=== PATIENT | female | born 1950 | race Caucasian/White ===

== ENCOUNTER 2017-10-17 01:51 | Observation (INO) ==
--- NOTE | 2017-10-17 03:54 | ED ---
HPI General Chief complaint: Recheck/Abnormal Lab/Rx Stated complaint: medical/doctor sent Time Seen by Provider: 10/17/17 03:36 Source: patient History of Present Illness HPI narrative: The patient is a 67 year old female who presents to the [facility] emergency department with a history of fatigue, fevers with a T-max of 104, and night sweats that began on September 24. The patient reports that she went to the emergency department and was diagnosed with an E. coli growing urinary tract infection. Her only symptoms from a urinary tract infection standpoint were more frequent urination at night. She denies having any dysuria or urinary urgency. She reports that she was started on Macrobid. She reports that she continue to have the symptoms and went back to the emergency department on October 03. She was then placed on Keflex 4 times a day for 10 days. She reports that 2 days into taking the Keflex her symptoms had resolved, however she called back to [place] where her turner off is currently located and explained the symptoms and was told that she would need a 2D echo. The patient is followed for her cardiac care by Dr. Leonard. Her primary care physician is Dr. Otero. The patient was visiting [place] when this transpired. The patient reports that she did on August 04 undergo a crown replacement in the left mandible and unfortunately forgot to take her premedication with 4 amoxicillin tablets. She is on prophylaxis related to an aortic valve replacement with a bovine valve in 2014. She also had a pacemaker placed in 2009. The patient reports a history of atrial fibrillation and is chronically anticoagulated on Coumadin. The patient reports that she had an outpatient 2D echo done on October 12, last . It was suspicious for endocarditis with valvular abnormalities, therefore she was immediately taken to the emergency department. The patient was admitted through Monday and had been on Rocephin and vancomycin, however the vancomycin was discontinued and the Rocephin continued. The patient reports that she was discharged from the hospital Monday morning after receiving a 6 AM dose of Rocephin 2 g IV. The patient then flew back to [place]. She was told by her primary care physician and turner off to come to the hospital for admission. She reports that her blood cultures were negative in the hospital. On review of systems otherwise, the patient reports briefly having some nausea, however no vomiting since the onset of symptoms. She denies having any recent fevers, cough or congestion, neck pain, chest pain, shortness of breath, abdominal pain, diarrhea, or neurologic symptoms. Related Data Home Medications Medication Instructions Recorded Confirmed levothyroxine 50 mcg PO DAILY 10/17/17 10/17/17 warfarin 4 mg PO Q OTHER DAY 10/17/17 10/17/17 warfarin 5 mg PO Q OTHER DAY 10/17/17 10/17/17 Allergies Allergy/AdvReac Type Severity Reaction Status Date / Time No Known Allergies Allergy Verified 10/17/17 02:22 Review of Systems ROS Unobtainable All other systems reviewed negative except as stated in HPI [facility] Medical History Medical History Aortic stenosis (Acute) Guillain Chery syndrome (Acute) Hypothyroidism (Acute) Pacemaker (Acute) Atrial fibrillation (Acute) Surgical History Surgical History Aortic valve replaced (Acute) H/O breast biopsy (Acute) Social History Social History Substance History: No History of Abuse Smoking Status: Never smoker How Often Do You Have a Drink Containing Alcohol: Never Recent Travel in [facility] within the Last 8 Weeks: No Recent Out of Country Travel within the Last 8 Weeks: No Immunization History Tetanus Immunization: >5 Years Hx Influenza Vaccine This Season: No Exam Const General: cooperative, no acute distress, well developed and well hydrated Nutritional Appearance: well nourished Orientation: alert, awake and oriented x3 HENMT Head: normocephalic and atraumatic Nose: no nasal discharge and no epistaxis Mouth: moist mucous membranes Eyes Sclera: normal sclerae Pupils: PERRL Neck Neck: trachea midline and no JVD Resp Effort & Inspection: no use of accessory muscles Auscultation: clear to auscultation bilaterally Cardio Rate: regular rate Rhythm: regular rhythm Heart Sounds: click, no murmurs and no rubs GI Inspection: non-distended Palpation: soft, no hepatosplenomegaly and nontender Back/Spine/Pelvis Back: no CVA tenderness Skin General: dry skin (warm) Neuro General: alert and awake Cranial Nerves: other Speech: speech normal Motor: no movement abnormalities noted Extrem General: normal to inspection, no clubbing, no cyanosis, no edema and other (No calf tenderness on palpation. Negative Homans sign. No palpable cords.) Psych Mood: congruent mood Affect: normal affect Judgment: judgment good Course Consultations Consultation #1: The patient's case including history, pertinent physical examination findings, and laboratory studies were discussed with Dr. Card. It was agreed that the patient would be admitted to the hospitalist service. Initial Documented Vital Signs Temperature 97.9 F 10/17/17 02:17 Pulse Rate 51 L 10/17/17 02:17 Respiratory Rate 20 10/17/17 02:17 Blood Pressure 126/60 10/17/17 02:17 Pulse Oximetry 99 10/17/17 02:17 Last Documented Vital Signs Temperature 97.9 F 10/17/17 02:17 Pulse Rate 69 10/17/17 03:38 Respiratory Rate 15 10/17/17 03:38 Blood Pressure 136/63 10/17/17 03:38 Pulse Oximetry 98 10/17/17 04:21 Medical Decision Making MDM Narrative Medical decision making narrative: During the course of the patient's emergency department visit, the patient's history, examination, and differential diagnosis were reviewed with the patient. The patient was placed on a monitor tech with oximetry and frequent blood pressure monitoring. The patient had IV access obtained and blood work sent for analysis. Blood cultures 2 were drawn, lactic acid was sent for analysis. The patient was initially provided normal saline at maintenance rate, Rocephin 2 g IV as she reports that she is due for another dose. The patient was sent in for continuation of IV antibiotic and further evaluation by her turner off for completion of her treatment of endocarditis. The patient reports a history of recently being diagnosed with endocarditis while visiting in [place] and traveled back for admission locally yesterday. She last received IV antibiotic yesterday. The patient has a copy of her imaging and evaluation in the hospital at [place] with her. The patient's laboratory studies are remarkable for a white count of 5, platelets 287 with a monocytosis at 10, hemoglobin 11.1, PT 23.3, INR 2.3, PTT 32.7. Chemistries remarkable for a troponin I of less than 0.02, GFR of 82, BUN 20, albumin 3.3, urinalysis shows few mucus trace leukocyte esterase. The patient's results were discussed with the patient, including the plan of care. I explained that further testing and/ or monitoring is indicated based on the patient's history, examination, and/ or laboratory findings. Therefore, I recommended admission for additional evaluation. The patient expressed understanding and was agreeable with this plan. The patient was admitted to the hospital in stable condition and sent to a bed under the care of the [facility] service. Differential Diagnosis Differential Diagnosis: Endocarditis, versus bacteremia, versus pyelonephritis, versus urinary tract infection Lab Data Result diagrams: 10/17/17 04:13 10/17/17 04:13 Lab Results 10/17/17 10/17/17 10/17/17 Range/Units 04:13 04:13 04:13 WBC 5.0 (4.0-11.0) th/mm3 RBC 3.68 L (4.00-5.30) mil/mm3 Hgb 11.1 L (11.6-15.3) gm/dL Hct 33.3 L (35.0-46.0) % MCV 90.5 (80.0-100.0) fL MCH 30.3 (27.0-34.0) pg MCHC 33.5 (32.0-36.0) % RDW 13.6 (11.6-17.2) % Plt Count 287 (150-450) th/mm3 MPV 7.9 (7.0-11.0) fL Neut % (Auto) 65.0 (16.0-70.0) % Lymph % (Auto) 23.6 (9.0-44.0) % [place] % (Auto) 10.0 H (0.0-8.0) % Eos % (Auto) 0.9 (0.0-4.0) % Baso % (Auto) 0.5 (0.0-2.0) % Neut # (Auto) 3.2 (1.8-7.7) th/mm3 Lymph # (Auto) 1.2 (1.0-4.8) th/mm3 [place] # (Auto) 0.5 (0.0-0.9) th/mm3 Eos # (Auto) 0.0 (0.0-0.4) th/mm3 Baso # (Auto) 0.0 (0.0-0.2) th/mm3 WBC Differential . Differential Comment Auto diff final PT 23.3 H (9.8-11.6) sec INR 2.3 Ratio APTT 32.7 H (24.3-30.1) sec Sodium 140 (136-145) meq/L Potassium 3.8 (3.5-5.1) meq/L Chloride 104 (98-107) meq/L Carbon Dioxide 28.8 (21.0-32.0) meq/L Anion Gap 7 (5-15) meq/L BUN 20 H (7-18) mg/dL Creatinine 0.71 (0.50-1.00) mg/dL Estimated GFR 82 L (>89) mL/min Random Glucose 97 (74-106) mg/dL Lactic Acid (0.4-2.0) mmol/L Calcium 8.6 (8.5-10.1) mg/dL Magnesium 2.1 (1.5-2.5) mg/dL Total Bilirubin 0.3 (0.2-1.0) mg/dL AST 35 (15-37) U/L ALT 44 (10-53) U/L Alkaline Phosphatase 62 (45-117) U/L Total Creatine Kinase 68 (26-192) U/L Troponin I Less than 0.02 L (0.02-0.05) ng/mL Total Protein 8.0 (6.4-8.2) g/dL Albumin 3.3 L (3.4-5.0) g/dL Lipase 164 (73-393) U/L Urine Color (Yellw/Straw) Urine Clarity (Clear) Urine pH (5.0-8.5) Ur Specific [place] (1.002-1.035) Urine Protein (Neg-Trace) mg/dL Urine Glucose (UA) (Negative) mg/dL Urine Ketones (Negative) mg/dL Urine Occult Blood (Negative) Urine Nitrate (Negative) Urine Bilirubin (Negative) Urine Urobilinogen (Less than 2) mg/dL Ur Leukocyte Esterase (Negative) Urine RBC (0-3) /hpf Urine WBC (0-5) /hpf Ur Squamous Epith Cells (0-5) /hpf Hyaline Casts (0-3) /lpf Urine Mucus (Occasional) /lpf Micro UA Comment Urine Culture Comments 10/17/17 10/17/17 Range/Units 04:13 05:13 WBC (4.0-11.0) th/mm3 RBC (4.00-5.30) mil/mm3 Hgb (11.6-15.3) gm/dL Hct (35.0-46.0) % MCV (80.0-100.0) fL MCH (27.0-34.0) pg MCHC (32.0-36.0) % RDW (11.6-17.2) % Plt Count (150-450) th/mm3 MPV (7.0-11.0) fL Neut % (Auto) (16.0-70.0) % Lymph % (Auto) (9.0-44.0) % [place] % (Auto) (0.0-8.0) % Eos % (Auto) (0.0-4.0) % Baso % (Auto) (0.0-2.0) % Neut # (Auto) (1.8-7.7) th/mm3 Lymph # (Auto) (1.0-4.8) th/mm3 [place] # (Auto) (0.0-0.9) th/mm3 Eos # (Auto) (0.0-0.4) th/mm3 Baso # (Auto) (0.0-0.2) th/mm3 WBC Differential Differential Comment PT (9.8-11.6) sec INR Ratio APTT (24.3-30.1) sec Sodium (136-145) meq/L Potassium (3.5-5.1) meq/L Chloride (98-107) meq/L Carbon Dioxide (21.0-32.0) meq/L Anion Gap (5-15) meq/L BUN (7-18) mg/dL Creatinine (0.50-1.00) mg/dL Estimated GFR (>89) mL/min Random Glucose (74-106) mg/dL Lactic Acid 1.5 (0.4-2.0) mmol/L Calcium (8.5-10.1) mg/dL Magnesium (1.5-2.5) mg/dL Total Bilirubin (0.2-1.0) mg/dL AST (15-37) U/L ALT (10-53) U/L Alkaline Phosphatase (45-117) U/L Total Creatine Kinase (26-192) U/L Troponin I (0.02-0.05) ng/mL Total Protein (6.4-8.2) g/dL Albumin (3.4-5.0) g/dL Lipase (73-393) U/L Urine Color Yellow (Yellw/Straw) Urine Clarity Clear (Clear) Urine pH 6.0 (5.0-8.5) Ur Specific [place] 1.017 (1.002-1.035) Urine Protein Negative (Neg-Trace) mg/dL Urine Glucose (UA) Negative (Negative) mg/dL Urine Ketones Negative (Negative) mg/dL Urine Occult Blood Negative (Negative) Urine Nitrate Negative (Negative) Urine Bilirubin Negative (Negative) Urine Urobilinogen Less than 2 (Less than 2) mg/dL Ur Leukocyte Esterase Trace H (Negative) Urine RBC 2 (0-3) /hpf Urine WBC 10 H (0-5) /hpf Ur Squamous Epith Cells <1 (0-5) /hpf Hyaline Casts 1 (0-3) /lpf Urine Mucus Few H (Occasional) /lpf Micro UA Comment Culture indicated Urine Culture Comments Culture indicated Imaging Data Radiologist's impression: Chest X-Ray 10/17/17 04:10 CONCLUSION: No active disease. Postsurgical changes as above. ECG Data Attestation: I personally reviewed and interpreted this ECG as follows: Interpretation: The patient had an EKG done on arrival that shows an electronic atrial paced rhythm, heart rate is 71, QRS duration 90 a 473 ms representing a prolonged QT interval, no acute ST segment elevation is noted. T waves are inverted in V1. Discharge Plan Discharge Disposition Patient Disposition: 30 Still Patient Physicians Team ED Provider: Bertha Haynes Primary Care Provider: UNKNOWN, Rxs /Orders / Referrals /Forms Prescriptions: No Action levothyroxine 50 mcg Tablet 50 mcg PO DAILY RF: 0 warfarin 4 mg Tablet 4 mg PO Q OTHER DAY RF: 0 warfarin 5 mg Tablet 5 mg PO Q OTHER DAY RF: 0 Status ED Status: With Doctor
--- NOTE | 2017-10-17 04:34 | XR ---
EXAM DATE: 10/17/2017 4:26 AM EDT AGE/SEX: 67 years / Female INDICATIONS: . Fever. Primary care physician sent. CLINICAL DATA: This is the patient's initial encounter. Patient reports that signs and symptoms have been present for 1 day and indicates a pain score of 0/10. MEDICAL/SURGICAL HISTORY: None. Pacemaker. COMPARISON: No prior exams available for comparison. FINDINGS: Pacer leads overlie right atrium and right ventricle. Previous sternotomy and aortic valve replacemen t with atrial clip. No focal airspace disease or effusion. No pneumothorax. CONCLUSION: No active disease. Postsurgical changes as above. Electronically signed by: Isak Shen MD 10/17/2017 4:33 AM EDT
[2017-10-17 04:36] LABS: Baso % (Auto) 0.5 % (0.0-2.0); Eos % (Auto) 0.9 % (0.0-4.0); Hematocrit 33.3 % (35.0-46.0); Hemoglobin 11.1 gm/dL (11.6-15.3); Lymph # (Auto) 1.2 th/mm3 (1.0-4.8); Lymph % (Auto) 23.6 % (9.0-44.0); Mean Corpuscular HGB Conc 33.5 % (32.0-36.0); Mean Corpuscular Hemoglobin 30.3 pg (27.0-34.0); Mean Corpuscular Volume 90.5 fL (80.0-100.0); Mean Platelet Volume 7.9 fL (7.0-11.0); Mono # (Auto) 0.5 th/mm3 (0.0-0.9); Neut # (Auto) 3.2 th/mm3 (1.8-7.7); Platelet Count 287 th/mm3 (150-450); Red Blood Count 3.68 mil/mm3 (4.00-5.30); Red Cell Distribution Width 13.6 % (11.6-17.2)
[2017-10-17 04:38] LABS: Activated Partial Thrombo Time 32.7 sec (24.3-30.1); INR 2.3 Ratio; Prothrombin Time 23.3 sec (9.8-11.6)
[2017-10-17 04:48] LABS: Alanine Aminotransferase 44 U/L (10-53); Albumin 3.3 g/dL (3.4-5.0); Anion Gap 7 meq/L (5-15); Aspartate Aminotransferase 35 U/L (15-37); Blood Urea Nitrogen 20 mg/dL (7-18); Calcium 8.6 mg/dL (8.5-10.1); Carbon Dioxide 28.8 meq/L (21.0-32.0); Chloride 104 meq/L (98-107); Glomerular Filtration Rate 82 mL/min (>89); Glucose,Random 97 mg/dL (74-106); Lipase 164 U/L (73-393); Magnesium 2.1 mg/dL (1.5-2.5); Potassium 3.8 meq/L (3.5-5.1); Sodium 140 meq/L (136-145)
[2017-10-17 04:53] LABS: Alkaline Phosphatase 62 U/L (45-117); Creatine Kinase 68 U/L (26-192)
[2017-10-17 05:37] LABS: Bilirubin,Urine Negative (Negative); Clarity,Urine Clear (Clear); Color,Urine Yellow (Yellw/Straw); Glucose,Urine (UA) Negative (Negative); Hyaline Casts,Urine 1 /lpf (0-3); Leukocyte Esterase,Urine Trace (Negative); Mucus,Urine Few /lpf (Occasional); Nitrite,Urine Negative (Negative); Specific Gravity,Urine 1.017 (1.002-1.035); Squamous Epithelial Cell,Urine <1 /hpf (0-5)
--- NOTE | 2017-10-17 09:32 | P.HPIM ---
History of Present Illness Primary Care Physician: UNKNOWN Chief Complaint: fever History of Present Illness: patient is a 67 y/o female with history of atrial fibrillation- s/p aortic valve replacement and pacemaker insertion, presented to ER with possible endocarditis. she says that she started to have some fever and chills about three weeks ago. she was seen in ER and initially started on Macrobid and later on keflex for possible UTI. she says that since the fever didn't resolve she had an echo done. the report of echo at that hospital showed possible vegetation vs fibrous strand on one of the leads in RA. she received Vanco and Rocephin at the time but she says that since she lives in [place], she decided to leave but she was told to come to ER right away after she gets back home. she says that she didn't habd any further fever or chills since then. she denies any chest pain,sob, abdominal pain. Review of Systems All other systems reviewed negative except as stated in HPI [facility] - History History Provided By: Patient - Medical History Medical History: Medical History (Last Reviewed 10/17/17 @ 10:51 by Irlanda Bermudez MD) Aortic stenosis Guillain Chery syndrome Hypothyroidism Atrial fibrillation - Surgical History Surgical History: Surgical History (Last Updated 10/17/17 @ 10:52 by Irlanda Bermudez MD) H/O aortic valve replacement S/P placement of cardiac pacemaker H/O breast biopsy - Tobacco History Smoking Status: Never smoker - Alcohol History How Often Do You Have a Drink Containing Alcohol: Never - Substance Use History Substance History: No History of Abuse - Travel History Recent Travel in the [place] Within the Last 8 Weeks: No Recent Travel Out of the Country Within the Last 8 Weeks: No - Immunization History Tetanus Immunization: >5 Years Hx Influenza Vaccine This Season: No Medications and Allergies Active Medications: Active Medications Ceftriaxone Sodium 2,000 mg/ (Sodium Chloride) 100 mls @ 200 mls/hr IV.SIG Q12H [facility] Pharmacy Profile Note (Vancomycin Consult Pharmacy) 0 mls @ 0 mls/hr OTHER UNSCH [facility] Levothyroxine Sodium (Synthroid) 50 mcg PO DAILY [facility] Warfarin Sodium (Coumadin) 4 mg PO Q OTHER DAY [facility] Warfarin Sodium (Coumadin) 5 mg PO Q OTHER DAY [facility] Allergies Allergy/AdvReac Type Severity Reaction Status Date / Time No Known Allergies Allergy Verified 10/17/17 02:22 Home Medications Medication Instructions Recorded Confirmed Type levothyroxine 50 mcg PO DAILY 10/17/17 10/17/17 History warfarin 4 mg PO Q OTHER DAY 10/17/17 10/17/17 History warfarin 5 mg PO Q OTHER DAY 10/17/17 10/17/17 History Exam Vital signs: Vital Signs 10/17/17 02:17 10/17/17 03:38 10/17/17 04:21 Temperature 97.9 F Pulse Rate 51 L 69 Respiratory Rate 20 15 Blood Pressure 126/60 136/63 Pulse Oximetry 99 99 98 10/17/17 06:21 10/17/17 07:28 Temperature Pulse Rate 69 69 Respiratory Rate 17 18 Blood Pressure 119/64 119/64 Pulse Oximetry 99 Intake & Output 10/16/17 10/17/17 10/17/17 18:59 06:59 18:59 Intake Total 100 / 100 Balance 100 / 100 Weight 58.967 kg Intake: IV 100 / 100 Rocephin Inj 2,000 MG In NS Inj 100 / 100 100 ML @ 200 mls/hr IV.SIG ONCE ONE Rx#:[id number] - Constitutional no acute distress - Routine HEENT Exam Head: Present: normocephalic, atraumatic - Routine Neck Exam Present: supple, full ROM - Routine Respiratory Exam Present: CTA bilaterally - Routine Cardiovascular Exam Present: RRR - Routine Abdominal Exam Present: soft - Routine Extremities Exam Comments: no pedal edema. - Routine Neurological Exam Present: alert, oriented X3 Results - Labs CBC & Chem 7: 10/17/17 04:13 10/17/17 04:13 Labs: Short CBC 10/17/17 Range/Units 04:13 WBC 5.0 (4.0-11.0) th/mm3 Hgb 11.1 L (11.6-15.3) gm/dL Hct 33.3 L (35.0-46.0) % Plt Count 287 (150-450) th/mm3 BMP 10/17/17 04:13 Sodium 140 Potassium 3.8 Chloride 104 Carbon Dioxide 28.8 BUN 20 H Creatinine 0.71 Calcium 8.6 Cardiac Enzymes 10/17/17 Range/Units 04:13 Total Creatine Kinase 68 (26-192) U/L Troponin I Less than 0.02 L (0.02-0.05) ng/mL Liver Function 10/17/17 Range/Units 04:13 Total Bilirubin 0.3 (0.2-1.0) mg/dL AST 35 (15-37) U/L ALT 44 (10-53) U/L Alkaline Phosphatase 62 (45-117) U/L Albumin 3.3 L (3.4-5.0) g/dL Urine 10/17/17 Range/Units 05:13 Urine Color Yellow (Yellw/Straw) Urine Clarity Clear (Clear) Urine pH 6.0 (5.0-8.5) Ur Specific [place] 1.017 (1.002-1.035) Urine Protein Negative (Neg-Trace) mg/dL Urine Glucose (UA) Negative (Negative) mg/dL - Imaging Impressions Chest X-Ray 10/17/17 04:10 CONCLUSION: No active disease. Postsurgical changes as above. Caprini VTE Risk Assessment Caprini VTE Risk Assessment: Moderate/High Risk (score >= 2) Caprini Risk Assessment Model: Point Value = 1 Point Value = 2 Point Value = 3 Point Value = 5 Age 41-60 Minor surgery BMI > 25 kg/m2 Swollen legs Varicose veins or History of unexplained or recurrent spontaneous Oral contraceptives or hormone replacement Sepsis (< 1 month) Serious lung disease, including pneumonia (< 1 month) Abnormal pulmonary function Acute myocardial infarction Congestive heart failure (< 1 month) History of inflammatory bowel disease Medical patient at bed rest Age 61-74 Arthroscopic surgery Major open surgery (> 45 min) Laparoscopic surgery (> 45 min) Malignancy Confined to bed (> 72 hours) Immobilizing plaster cast Central venous access Age >= 75 History of VTE Family history of VTE Factor V Leiden Prothrombin [id number] Lupus anticoagulant Anticardiolipin antibodies Elevated serum homocysteine Heparin-induced thrombocytopenia Other congenital or acquired thrombophilia Stroke (< 1 month) Elective arthroplasty Hip, pelvis, or leg fracture Acute spinal cord injury (< 1 month) Prophylaxis Regimen: Total Risk Factor Score Risk Level Prophylaxis Regimen 0-1 Low Early ambulation 2 Moderate Order ONE of the following: *Sequential Compression Device (SCD) *Heparin 5000 units SQ BID 3-4 Higher Order ONE of the following medications: *Heparin 5000 units SQ TID *Enoxaparin/Lovenox 40 mg SQ daily (WT < 150 kg, CrCl > 30 mL/min) *Enoxaparin/Lovenox 30 mg SQ daily (WT < 150 kg, CrCl > 10-29 mL/min) *Enoxaparin/Lovenox 30 mg SQ BID (WT < 150 kg, CrCl > 30 mL/min) AND/OR *Sequential Compression Device (SCD) 5 or more Highest Order ONE of the following medications: *Heparin 5000 units SQ TID (Preferred with Epidurals) *Enoxaparin/Lovenox 40 mg SQ daily (WT < 150 kg, CrCl > 30 mL/min) *Enoxaparin/Lovenox 30 mg SQ daily (WT < 150 kg, CrCl > 10-29 mL/min) *Enoxaparin/Lovenox 30 mg SQ BID (WT < 150 kg, CrCl > 30 mL/min) AND *Sequential Compression Device (SCD) Assessment and Plan - Plan A/P - possible endocarditis- s/p aortic valve replacement and pacemaker insertion a few years ago. one week history of fever/ chills about three weeks ago. patient had echo in another hospital with possible vegetation vs fibrous strand on the device lead in RA. continue IV Rocephin and start on Vanco. repeat the blood cultures- consult ID and cardiology. -atrial fibrillation- HR controlled- continue Coumadin with INR monitoring. -hypothyroidism; resume home meds. -DVT prophylaxis; on Coumadin.
[2017-10-17] MEDS ORDERED: Vancomycin Consult Pharmacy 1 EACH OTHER SCH (10:00)
--- NOTE | 2017-10-17 10:58 | P.CONID ---
History of Present Illness Service: Infectious disease Consult date: 10/17/17 Requesting Physician: Jessica Sorto Reason for Consult: Evaluate patient for possible endocarditis Primary Care Provider: UNKNOWN Chief Complaint: fever History of Present Illness: Patient seen and examined. Records reviewed. Patient is a 67-year-old female, brought in to the hospital for further evaluation for possible endocarditis. Patient normally lives in [place], and spends at least a month in [facility]. She was up in [place] for the usual summer vacation when she started having problem with some fever and chills, around September 24. She is also had some fatigue. She went to the emergency room on September 28, and she had a diagnosis of UTI at that time, and was given a prescription for Macrobid. She was instructed to call back if she does not get better which she did, after about 2 days, and Keflex was added to her regimen. She apparently had some frequency complain when she presented to the emergency room. After several days of adding Keflex, her fever and chills subsided. She completed her course of antibiotics, and she thinks she had about 10 days of Keflex. Patient reportedly had a crown placement in August back here in [place], and she reportedly forgot to take her antibiotic prophylaxis. Patient called her primary care doctor and her reconciliation coordinator here in [place], and her reconciliation coordinator recommended that she get an echocardiogram done. She had that done October 12, and there was some abnormality found on her pacemaker lead, as well as in her tissue valve so she was told to go to the emergency room. Patient was admitted to the hospital, and reportedly her blood cultures were negative. She was on vancomycin and Rocephin. Patient decided to come back to [place], and she was instructed to go straight to the emergency room where she is now admitted. Patient has not been febrile. Her WBC is normal. 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 Patient is back on Rocephin, and got a dose of vancomycin. Patient denies any respiratory complaint. Her fever and chills and fatigue have all resolved. She denies any urinary complaints. Infectious disease consultation has been requested to evaluate for possible endocarditis. Review of Systems Constitutional: Reports chills, Reports fatigue, Reports fever(s), Denies headache(s), Denies night sweats Eyes: Denies discharge, Denies itchy eyes Ears, Nose, Mouth, and Throat: Denies dizziness, Denies ear pain, Denies mouth pain, Denies nasal congestion, Denies pain with swallowing, Denies sore throat Cardiovascular: Denies chest pain, Denies shortness of breath Respiratory: Denies chest congestion, Denies cough, Denies shortness of breath Gastrointestinal: Denies abdominal pain, Denies difficulty swallowing, Denies nausea, Denies pain with swallowing, Denies vomiting Genitourinary: Denies blood in urine, Denies painful urination Musculoskeletal: Denies body aches, Denies joint pain, Denies joint swelling Skin/Breast: Denies rash, Denies sores Neurologic: Denies fainting, Denies headache(s) Psychiatric: Denies confusion [facility] - History History Provided By: Patient - Medical History Medical History: Medical History (Last Reviewed 10/17/17 @ 10:51 by Irlanda Bermudez MD) Aortic stenosis Guillain Chery syndrome Hypothyroidism Atrial fibrillation - Surgical History Surgical History: Surgical History (Last Updated 10/17/17 @ 10:52 by Irlanda Bermudez MD) H/O aortic valve replacement S/P placement of cardiac pacemaker H/O breast biopsy - Tobacco History Smoking Status: Never smoker - Alcohol History How Often Do You Have a Drink Containing Alcohol: Never - Substance Use History Substance History: No History of Abuse - Travel History Recent Travel in the [place] Within the Last 8 Weeks: No Recent Travel Out of the Country Within the Last 8 Weeks: No - Immunization History Tetanus Immunization: >5 Years Hx Influenza Vaccine This Season: No Medications and Allergies Active Medications: Active Medications Ceftriaxone Sodium 2,000 mg/ (Sodium Chloride) 100 mls @ 200 mls/hr IV.SIG Q12H [facility] Pharmacy Profile Note (Vancomycin Consult Pharmacy) 0 mls @ 0 mls/hr OTHER UNSCH [facility] Levothyroxine Sodium (Synthroid) 50 mcg PO DAILY [facility] Warfarin Sodium (Coumadin) 4 mg PO Q OTHER DAY [facility] Warfarin Sodium (Coumadin) 5 mg PO Q OTHER DAY [facility] Allergies Allergy/AdvReac Type Severity Reaction Status Date / Time No Known Allergies Allergy Verified 10/17/17 02:22 Home Medications Medication Instructions Recorded Confirmed Type levothyroxine 50 mcg PO DAILY 10/17/17 10/17/17 History warfarin 4 mg PO Q OTHER DAY 10/17/17 10/17/17 History warfarin 5 mg PO Q OTHER DAY 10/17/17 10/17/17 History Exam Vital signs: Vital Signs 10/17/17 02:17 10/17/17 03:38 10/17/17 04:21 Temperature 97.9 F Pulse Rate 51 L 69 Respiratory Rate 20 15 Blood Pressure 126/60 136/63 Pulse Oximetry 99 99 98 10/17/17 06:21 10/17/17 07:28 Temperature Pulse Rate 69 69 Respiratory Rate 17 18 Blood Pressure 119/64 119/64 Pulse Oximetry 99 Intake & Output 10/16/17 10/17/17 10/17/17 18:59 06:59 18:59 Intake Total 100 / 100 Balance 100 / 100 Weight 58.967 kg Intake: IV 100 / 100 Rocephin Inj 2,000 MG In NS Inj 100 / 100 100 ML @ 200 mls/hr IV.SIG ONCE ONE Rx#:[id number] Narrative: GENERAL: Patient is a well-nourished, well-developed female, awake and alert , not in respiratory distress. SKIN: Cool and dry. No generalized rash, no ecchymoses and no evidence of embolic lesions. HEAD: Atraumatic. Normocephalic. No temporal wasting, or tenderness. EYES: [place] conjunctiva. No petechia or hemorrhage. Pupils equal, round and reactive to light. Extraocular movements full and intact. No scleral icterus. No injection or drainage. EARS, NOSE AND THROAT: Nose without bleeding or purulent nasal discharge. No sinus tenderness. Mucous membranes pink and moist. No oral lesions noted. No exudate. No oral thrush. NECK: Trachea midline. Supple and not tender, no meningeal signs CARDIOVASCULAR: Regular rate and rhythm. No rubs or gallops heard. (+) murmur in LSB. Pacemaker in place in left upper chest with no evidence of infection RESPIRATORY: Clear to auscultation. Breath sounds equal bilaterally. No rales , wheezing or rhonchi ABDOMEN: Soft, non-tender, nondistended. Bowel sounds present and normoactive. No guarding. No rebound. No organomegaly. EXTREMITIES: No clubbing, cyanosis, or edema. No joint effusion, has good ROM. No calf tenderness. Well perfused and warm. NEUROLOGICAL: Awake and alert. Cranial nerves grossly intact. Motor grossly within normal limits. PSYCHIATRIC: Normal affect, calm and cooperative. LINE: No evidence of infection Results - Labs CBC & Chem 7: 10/17/17 04:13 10/17/17 04:13 Labs: Laboratory Results - last 24 hr 10/17/17 10/17/17 10/17/17 04:13 04:13 04:13 WBC 5.0 RBC 3.68 L Hgb 11.1 L Hct 33.3 L MCV 90.5 MCH 30.3 MCHC 33.5 RDW 13.6 Plt Count 287 MPV 7.9 Neut % (Auto) 65.0 Lymph % (Auto) 23.6 [place] % (Auto) 10.0 H Eos % (Auto) 0.9 Baso % (Auto) 0.5 Neut # (Auto) 3.2 Lymph # (Auto) 1.2 [place] # (Auto) 0.5 Eos # (Auto) 0.0 Baso # (Auto) 0.0 WBC Differential . Differential Comment Auto diff final PT 23.3 H INR 2.3 APTT 32.7 H Sodium 140 Potassium 3.8 Chloride 104 Carbon Dioxide 28.8 Anion Gap 7 BUN 20 H Creatinine 0.71 Estimated GFR 82 L Random Glucose 97 Lactic Acid Calcium 8.6 Magnesium 2.1 Total Bilirubin 0.3 AST 35 ALT 44 Alkaline Phosphatase 62 Total Creatine Kinase 68 Troponin I Less than 0.02 L Total Protein 8.0 Albumin 3.3 L Lipase 164 Urine Color Urine Clarity Urine pH Ur Specific [place] Urine Protein Urine Glucose (UA) Urine Ketones Urine Occult Blood Urine Nitrate Urine Bilirubin Urine Urobilinogen Ur Leukocyte Esterase Urine RBC Urine WBC Ur Squamous Epith Cells Hyaline Casts Urine Mucus Micro UA Comment Urine Culture Comments 10/17/17 10/17/17 04:13 05:13 WBC RBC Hgb Hct MCV MCH MCHC RDW Plt Count MPV Neut % (Auto) Lymph % (Auto) [place] % (Auto) Eos % (Auto) Baso % (Auto) Neut # (Auto) Lymph # (Auto) [place] # (Auto) Eos # (Auto) Baso # (Auto) WBC Differential Differential Comment PT INR APTT Sodium Potassium Chloride Carbon Dioxide Anion Gap BUN Creatinine Estimated GFR Random Glucose Lactic Acid 1.5 Calcium Magnesium Total Bilirubin AST ALT Alkaline Phosphatase Total Creatine Kinase Troponin I Total Protein Albumin Lipase Urine Color Yellow Urine Clarity Clear Urine pH 6.0 Ur Specific [place] 1.017 Urine Protein Negative Urine Glucose (UA) Negative Urine Ketones Negative Urine Occult Blood Negative Urine Nitrate Negative Urine Bilirubin Negative Urine Urobilinogen Less than 2 Ur Leukocyte Esterase Trace H Urine RBC 2 Urine WBC 10 H Ur Squamous Epith Cells <1 Hyaline Casts 1 Urine Mucus Few H Micro UA Comment Culture indicated Urine Culture Comments Culture indicated - Imaging Impressions Chest X-Ray 10/17/17 04:10 CONCLUSION: No active disease. Postsurgical changes as above. Assessment and Plan - Plan Impression Episode of fevers and chills and fatigue, resolved - etiology? has some studies suggestive of endocarditis (echo) - preceded by crown placement, no Abx prophylaxis - echo per report with ?abnormality in lead, AV, but BC reportedly negative (Off Abx when BC done, not sure how long she was off Abx) Recent Rx for UTI Recent crown placement August 2017 S/P pacer for SSS S/P AVR for severe Recommendation Will need KIM Get BC from other hospital Follow BC here Get ESR, CRP and RF (some indirect inflammatory markers) On Rocephin and got dose of vancomycin Monitor progress Will determine course or need for Abx once work-up is completed I will follow along with you Thank you for this consultation Explained plan to the patient
[2017-10-17] MEDS ORDERED: Vancomycin Inj 1,000 MG in Sodium Chlor 0.9% Inj 250 ML IV.SIG ONE (14:00)
--- NOTE | 2017-10-17 18:24 | MB ---
cc: Huy Leonard MD, Mark B MD DATE: 10/17/2017 REASON FOR CONSULTATION: Evaluate for possible endocarditis. REFERRING PHYSICIAN: Dr. Sorto HISTORY OF PRESENT ILLNESS: Ms. Frye is a 67-year-old white female, well known to me. With history of permanent pacemaker placement and aortic valve replacement with a bioprosthetic valve. The patient was vacationing up in [place], [place] when she developed some fevers and chills. That occurred around 09/24. She was initially found to have a urinary tract infection and was given Macrobid, but that medicine did not cure her symptoms over the next 2 days and Keflex was added to her regimen. That seemed to resolve her symptoms and fever quickly. The patient had initial blood cultures that were negative and subsequent blood cultures after antibiotics that are thus far negative as well. The patient underwent an echocardiogram to evaluate her aortic valve and there was some suspicion for aortic valve endocarditis and so she ended up having a transesophageal echocardiogram for further evaluation. That was done last Monday, 10/13. That study was also somewhat inconclusive. There was some suspicion of fibrin or vegetation on the atrial portion of her pacemaker leads and there was some mention of a small mobile density on her aortic valve. Although the patient was asymptomatic, she was seen by infectious disease services and because of the suspicion and her initial presentation and history of also dental work in August during which she forgot to take her SBE antibiotic prophylaxix. She was therefor recommended continued empiric therapy with IV antibiotics including ceftriaxone and vancomycin. She wanted to come back to [place], so she was given a dose of her IV antibiotics yesterday morning and was discharged to follow up here. When she arrived here, she was instructed to go to the emergency room for evaluation by her primary care physician. The patient is currently asymptomatic, lying in bed. She denies any recurrent fevers, chills or night sweats. She has been taking her other medications as directed. ALLERGIES: NONE KNOWN. CURRENT MEDICATIONS: Include the dose of vancomycin and ceftriaxone intravenously yesterday. She is taking warfarin 4 mg p.o. daily, atenolol 12.5 mg daily, Levothyroxine 50 mcg daily, clotrimazole cream topical p.r.n. and, according to my records, she does use SBE prophylaxis prior to dental work. PAST MEDICAL HISTORY: Includes paroxysmal atrial fibrillation, aortic stenosis, hypothyroidism, hypotension, sick sinus syndrome, mitral valve prolapse, cranial Krause aneurysms. She denies any prior history of myocardial infarction, diabetes, heart failure, stroke, liver or kidney disease. She has never had any endocarditis. There is a questionable history of prior transient ischemic attacks that may have been determined ultimately to be migraines. Chronic anemia of uncertain etiology. PAST SURGICAL HISTORY: Vaginal prolapse, rectocele, cystocele, enterocele, biopsy right breast calcification negative, left salpingo-oophorectomy, dual chamber pacemaker implant Medtronic 05/09/2009, aortic valve bioprosthesis #23 Octavio-Ramos pericardial valve and a maze procedure with aortoplasty 05/23/2014. FAMILY HISTORY: Father age 84 with heart failure and Alzheimer's. Mother alive at age 86, hypertension and previous stent after a heart attack in 2013. She has 4 sisters, one is at age 65 after complications of a valve replacement and lupus. One is alive at 67 and 1 is alive and well at 64. SOCIAL HISTORY: The patient denies tobacco use now or in the past. Consumes 1-2 glasses of wine each month. Denies illicit drug use. , living with her . Retired registered nurse. Exercises 6 days a week, walking on the beach. REVIEW OF SYSTEMS: Except for that mentioned in the HPI, a complete 12-point review of systems is otherwise negative. PHYSICAL EXAMINATION: GENERAL: Reveals a 67-year-old white female, well-developed, well nourished and in no distress. VITAL SIGNS: Blood pressure 111/59 mmHg, heart rate is 88 and regular, respiratory rate 16, temperature 97.9, oxygen saturation is 98% on room air. HEENT: Head is normocephalic and atraumatic. Pupils equal, round, reactive to light. Sclerae are anicteric. Extraocular movements intact. NECK: Supple. There is no adenopathy. There is no jugular venous distention at 45 degrees. Carotid upstrokes are normal. No bruits. Thyroid exam is normal. LUNGS: Clear. HEART: PMI is not displaced. S1, S2 are normal. There is a grade 1-2/6 systolic murmur at the base. No diastolic murmur, gallops or rubs. ABDOMEN: Bowel sounds present. Soft, nontender. No hepatosplenomegaly, masses, or bruits. EXTREMITIES: No cyanosis, clubbing or edema. SKIN: Clear with no rashes. NEUROLOGIC: Nonfocal. CARDIOLOGY STUDIES: A transesophageal echocardiogram performed last Monday, 10/13, images and report reviewed by me. EKG performed today shows electronic atrial paced rhythm 100% capture, rate 71 with intrinsic ventricular conduction. IMAGING STUDIES: A chest x-ray from admission today shows no active disease, postsurgical changes. LABORATORY DATA: White count 5.0, hemoglobin 11.1, hematocrit 33.3, platelet count 287,000. INR 2.3. Electrolytes are normal. BUN 20, creatinine 0.71, glucose 97, magnesium 2.1. AST 35. Troponin I less than 0.02. CRP 0.40. Lipase 164. Rheumatoid factor negative. Urinalysis is negative. Blood cultures have been drawn and are pending. IMPRESSION: 1. Recent urinary tract infection, fever and chills, currently resolved. 2. Abnormal echocardiogram with some suspicion of endocarditis. 3. Status post permanent pacemaker implant Medtronic, functioning normally. 4. Status post aortic valve replacement #23 Octavio-Ramos bioprosthetic valve in 2014 at [facility], functioning normally. 5. Status post Shen-maze procedure 2014. 6. Sick sinus syndrome with paroxysmal atrial fibrillation, currently in atrial paced rhythm. 7. History of intracranial Krause aneurysms, negative head CT 08/23/2017 RECOMMENDATIONS: I have extensively reviewed all of the patient's records from the hospital where she was admitted up in [facility]. I have attempted to contact the dough molder up there to speak directly with him, but was unable to get in touch with him or his physician's general assistant. I have discussed the case in detail with Dr. Irlanda Bermudez. After review of the patient's records and transesophageal echocardiogram study, it still remains unclear whether there is any significant or definitive evidence of endocarditis. The plan upon her discharge from [facility] [place] [facility] was to empirically treat her with vancomycin and ceftriaxone for 6 weeks and then followup and reculture her. If she truly does have endocarditis involving her pacemaker leads and/or aortic valve prosthesis, ultimately the treatment for this will require explantation and replacement. Since she is currently asymptomatic, afebrile and all blood cultures are thus far negative, we will continue empiric therapy as planned. A PICC line will be placed and she will be discharged to home in the next day or 2 with home health care to administer her antibiotics for the next 6 weeks. Following that, if she remains asymptomatic, we will plan to reculture her and repeat her transesophageal echocardiogram if necessary. I have discussed all of these plans also with the patient in detail. There are no other additional cardiac recommendations at this time and no additional cardiovascular testing is necessary. 60 minutes patient face to face time and additional 60 minutes of record KIM image review as well as multiple phione calls to other physiscians required. I thank you for allowing me to participate in the care of this patient. MD RICHARD Rowe/ , 05:43 PM , 06:23 PM JUANITA
--- NOTE | 2017-10-17 20:45 | ECG ---
Date Performed: 10/17/2017 Time Performed: 03:36:21 PTAGE: 67 years EKG: ELECTRONIC ATRIAL PACEMAKER MINIMAL ST DEPRESSION PROLONGED QT INTERVAL ABNORMAL ECG NO PREVIOUS TRACING DOCTOR: Will De Paz Interpretating Date/Time 10/17/2017 20:43:19
[2017-10-18] MEDS ORDERED: Vancomycin Inj 1,000 MG in Sodium Chlor 0.9% Inj 250 ML IV.SIG SCH (02:00)
[2017-10-18] MEDS ORDERED: Levothyroxine 50 MCG Tablet PO SCH (06:00)
[2017-10-18 06:30] LABS: INR 2.6 Ratio; Prothrombin Time 26.4 sec (9.8-11.6)
--- NOTE | 2017-10-18 07:54 | P.PNCA ---
Subjective Interval history: Feeling well. Denies fever or chills. No CP or SOB. Physical Exam Vital signs: Vital Signs 10/17/17 10:43 10/17/17 12:00 10/17/17 20:00 Temperature 97.9 F 98.6 F Pulse Rate 70 88 81 Respiratory Rate 18 16 16 Blood Pressure 111/59 L 92/54 L Pulse Oximetry 98 95 10/17/17 23:31 10/18/17 00:00 10/18/17 04:00 Temperature 98.8 F 98.7 F Pulse Rate 78 69 69 Respiratory Rate 16 16 Blood Pressure 105/52 L 108/65 Pulse Oximetry 95 98 Intake & Output 10/17/17 10/18/17 10/18/17 18:59 06:59 18:59 Intake Total 100 / 100 350 / 350 Balance 100 / 100 350 / 350 Weight 58.967 kg Intake: IV 100 / 100 350 / 350 Vancomycin Inj 1,000 MG In NS 250 / 250 Inj 250 ML @ 250 mls/hr IV.SIG Q12H [facility] Rx#:[id number] Rocephin Inj 2,000 MG In NS Inj 100 / 100 100 / 100 100 ML @ 200 mls/hr IV.SIG Q12H [facility] Rx#:[id number] Other: Date of Last Bowel Movement 10/17/17 Weight On Admission 58.967 kg - Constitutional no acute distress, cooperative - Routine Neck Exam Present: supple - Routine Respiratory Exam Present: CTA bilaterally - Routine Cardiovascular Exam Present: RRR, S1, S2, murmur - Routine Extremities Exam Present: pulses intact, normal capillary refill - Routine Skin Exam Present: intact - Routine Neurological Exam Present: alert, oriented X3 Assessment and Plan - Assessment (1) Endocarditis determined by echocardiography Code(s): I38 - Endocarditis, valve unspecified Status: Acute (2) Presence of permanent cardiac pacemaker Code(s): Z95.0 - Presence of cardiac pacemaker Status: Acute (3) Aortic valve replaced Code(s): Z95.2 - Presence of prosthetic heart valve Status: Acute - Plan Long discussion yesterday and this AM with patient and Dr. Bermudez. Reviewed all outside records and KIM images. Outpatient IV antibiotics recommended for empiric treatment awaiting blood culture results. Patient not yet agreeing to that approach. Will discuss further with Dr. Bermudez this AM and make final decision. Can be discharged from [facility] otherwise. F/U in 3 weeks already scheduled in my offic. I will follow PRN. Thank you.
--- NOTE | 2017-10-18 10:17 | P.PN ---
Subjective Interval history: Follow-up visit suspicion of endocarditis. Patient seen and examined today. Reports she is doing well. Denies pain and discomfort. Denies SOB/ dyspnea. Denies chest pain, palpitations, headaches, dizziness. Denies fevers, chills, n/ v/d. Denies hematuria, dysuria. Patient states she spoke with Dr. Tong at this morning and have discussed extensively that she wanted to go home without any antibiotic and will follow-up in his office for repeat cultures and diagnostic testing. States that she has no symptoms since she came to the hospital and would want to do that instead. Discussed with patient will discuss with infectious disease doctor regarding her plans with Dr. Brown. Physical Exam Vital signs: Vital Signs 10/17/17 10:43 10/17/17 12:00 10/17/17 20:00 Temperature 97.9 F 98.6 F Pulse Rate 70 88 81 Respiratory Rate 18 16 16 Blood Pressure 111/59 L 92/54 L Pulse Oximetry 98 95 10/17/17 23:31 10/18/17 00:00 10/18/17 04:00 Temperature 98.8 F 98.7 F Pulse Rate 78 69 69 Respiratory Rate 16 16 Blood Pressure 105/52 L 108/65 Pulse Oximetry 95 98 10/18/17 08:00 Temperature 98.6 F Pulse Rate 77 Respiratory Rate 16 Blood Pressure 114/56 L Pulse Oximetry 97 Intake & Output 10/17/17 10/18/17 10/18/17 18:59 06:59 18:59 Intake Total 100 / 100 350 / 350 Balance 100 / 100 350 / 350 Weight 58.967 kg Intake: IV 100 / 100 350 / 350 Vancomycin Inj 1,000 MG In NS 250 / 250 Inj 250 ML @ 250 mls/hr IV.SIG Q12H GERARD Rx#:[id number] Rocephin Inj 2,000 MG In NS Inj 100 / 100 100 / 100 100 ML @ 200 mls/hr IV.SIG Q12H GERARD Rx#:[id number] Other: Date of Last Bowel Movement 10/17/17 Weight On Admission 58.967 kg Narrative: GENERAL: This is a well-nourished, well-developed patient, in no apparent distress. SKIN: Warm and dry HEENT: Normocephalic. Pupils equal round and reactive. Nose without bleeding. Airway patent. NECK: Trachea midline. No JVD. Supple. CARDIOVASCULAR: Regular rate and rhythm with murmurs. No gallops, or rubs. RESPIRATORY: Clear to auscultation. Breath sounds equal bilaterally. No wheezes , rales, or rhonchi. GASTROINTESTINAL: Abdomen soft, non-tender, nondistended. Bowel Sounds normoactive x4. MUSCULOSKELETAL: Extremities without clubbing, cyanosis, or edema. NEUROLOGICAL: Awake and alert. Oriented to time, place, person. No focal neuro deficit. Moves all extremities. Normal speech. 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 Suspected possible endocarditis S/p aortic valve replacement and pacemaker insertion a few years ago. -3 weeks ago with one week history of fever/ chills. Patient had echo in [facility] with possible vegetation vs fibrous strand on the device lead in RA. -On IV Rocephin and Vanco. -Repeat the blood cultures -Consult ID and Cardiology. Appreciate assistance and recommendation. -Infectious disease and dedicated intermodal truck driver spoke with patient today. Plan is to get the patient home follow up with dedicated intermodal truck driver and repeat blood cultures and diagnostic studies off antibiotics. She will monitor herself especially temperature twice a day. Seek medical help with any symptomatology. Patient agreeable with plan. Will follow up with Dr. Leonard. She has been a symptomatic since admission. No fevers, chills, nausea, vomiting, diarrhea, chest pain, palpitations. Atrial fibrillation, chronic- HR controlled -continue Coumadin with INR monitoring. Hypothyroidism -resume home meds. DVT prophylaxis on Coumadin. Discharge patient to home Condition on discharge: Improved Cardiac diet as tolerated Ad Sonja activity as tolerated Rx written: Resume home medications. Follow-up with primary care physician, Dr. Carroll in 3 weeks Code Status: Full code Discussed Condition With: Patient, nursing, Dr. Bermudez, Dr. Ellington Discharge Planning: Plan to DC home today with antibiotics.
--- NOTE | 2017-10-18 11:15 | P.PNID ---
Subjective Remarks: Patient is a 67-year-old female, brought in to the hospital for further evaluation for possible endocarditis. Patient normally lives in [place], and spends at least a month in [facility]. She was up in [place] for the usual summer vacation when she started having problem with some fever and chills, around September 24. She is also had some fatigue. She went to the emergency room on September 28, and she had a diagnosis of UTI at that time, and was given a prescription for Macrobid. She was instructed to call back if she does not get better which she did, after about 2 days, and Keflex was added to her regimen. She apparently had some frequency complain when she presented to the emergency room. After several days of adding Keflex, her fever and chills subsided. She completed her course of antibiotics, and she thinks she had about 10 days of Keflex. Patient reportedly had a crown placement in August back here in [place], and she reportedly forgot to take her antibiotic prophylaxis. Patient called her primary care doctor and her conservator artifacts here in [place], and her conservator artifacts recommended that she get an echocardiogram done. She had that done October 12, and there was some abnormality found on her pacemaker lead, as well as in her tissue valve so she was told to go to the emergency room. Patient was admitted to the hospital, and reportedly her blood cultures were negative. She was on vancomycin and Rocephin. Patient decided to come back to [place], and she was instructed to go straight to the emergency room where she is now admitted. Patient has not been febrile. Her WBC is normal. She had 2 blood cultures done gun examiner and those are still pending. Patient is back on Rocephin, and got a dose of vancomycin. Patient denies any respiratory complaint. Her fever and chills and fatigue have all resolved. She denies any urinary complaints. Infectious disease consultation has been requested to evaluate for possible endocarditis. Notes reviewed No fever Spoke with Dr Brown yesterday - and with all info available, we had decided to go with aggressive approach and Rx x 6 weeks, the do surveillance BC after end of Rx Patient currently does not want to go with this approach and wants to be off Abx and monitor for recurrent symptoms. She has not had any of symptoms since she received Keflex back in September, and all her BC have been negative. She has been afebrile here Her BC are negative Antibiotics: Vancomycin Rocephin Past Medical History: Aortic stenosis Guillain Chery syndrome Hypothyroidism Atrial fibrillation H/O aortic valve replacement S/P placement of cardiac pacemaker H/O breast biopsy Allergies/Adverse Reactions: Allergies No Known Allergies Allergy (Verified 10/17/17 02:22) Objective Vital Signs 10/17/17 12:00 10/17/17 20:00 10/17/17 23:31 Temperature 97.9 F 98.6 F 98.8 F Pulse Rate 88 81 78 Respiratory Rate 16 16 16 Blood Pressure 111/59 L 92/54 L 105/52 L Pulse Oximetry 98 95 95 10/18/17 00:00 10/18/17 04:00 10/18/17 08:00 Temperature 98.7 F 98.6 F Pulse Rate 69 69 77 Respiratory Rate 16 16 Blood Pressure 108/65 114/56 L Pulse Oximetry 98 97 Intake & Output 10/17/17 10/18/17 10/18/17 18:59 06:59 18:59 Intake Total 100 / 100 350 / 350 Balance 100 / 100 350 / 350 Weight 58.967 kg Intake: IV 100 / 100 350 / 350 Vancomycin Inj 1,000 MG In NS 250 / 250 Inj 250 ML @ 250 mls/hr IV.SIG Q12H GERARD Rx#:[id number] Rocephin Inj 2,000 MG In NS Inj 100 / 100 100 / 100 100 ML @ 200 mls/hr IV.SIG Q12H GERARD Rx#:[id number] Other: Date of Last Bowel Movement 10/17/17 Weight On Admission 58.967 kg 10/17/17 04:13 Blood - Peripheral Aerobic Blood Culture - Preliminary No growth in 1 day 10/17/17 04:13 Blood - Peripheral Anaerobic Blood Culture - Preliminary No growth in 1 day 10/17/17 04:13 Blood - Peripheral Aerobic Blood Culture - Preliminary No growth in 1 day 10/17/17 04:13 Blood - Peripheral Anaerobic Blood Culture - Preliminary No growth in 1 day 10/17/17 05:13 Clean Catch Urine Urine Culture - Pending Lab - Hematology Results 10/17/17 10/17/17 10/17/17 04:13 04:13 11:04 WBC 5.0 RBC 3.68 L Hgb 11.1 L Hct 33.3 L MCV 90.5 MCH 30.3 MCHC 33.5 RDW 13.6 Plt Count 287 MPV 7.9 Neut % (Auto) 65.0 Lymph % (Auto) 23.6 [place] % (Auto) 10.0 H Eos % (Auto) 0.9 Baso % (Auto) 0.5 Neut # (Auto) 3.2 Lymph # (Auto) 1.2 [place] # (Auto) 0.5 Eos # (Auto) 0.0 Baso # (Auto) 0.0 WBC Differential . Differential Comment Auto diff final ESR Cancelled 78 H Lab - Chemistry Results 10/17/17 10/17/17 10/17/17 04:13 04:13 04:13 Sodium 140 Potassium 3.8 Chloride 104 Carbon Dioxide 28.8 Anion Gap 7 BUN 20 H Creatinine 0.71 Estimated GFR 82 L Random Glucose 97 Lactic Acid 1.5 Calcium 8.6 Magnesium 2.1 Total Bilirubin 0.3 AST 35 ALT 44 Alkaline Phosphatase 62 Total Creatine Kinase 68 Troponin I Less than 0.02 L C-Reactive Protein 0.40 H Total Protein 8.0 Albumin 3.3 L Lipase 164 Imaging: ITS Impressions Chest X-Ray 10/17/17 04:10 CONCLUSION: No active disease. Postsurgical changes as above. Physical Exam: GENERAL: Patient is a well-nourished, well-developed female, awake and alert , not in respiratory distress. SKIN: Cool and dry. No generalized rash, no ecchymoses and no evidence of embolic lesions. HEAD: Atraumatic. Normocephalic. No temporal wasting, or tenderness. EYES: [place] conjunctiva. No petechia or hemorrhage. Pupils equal, round and reactive to light. Extraocular movements full and intact. No scleral icterus. No injection or drainage. EARS, NOSE AND THROAT: Nose without bleeding or purulent nasal discharge. Mucous membranes pink and moist. No oral lesions noted. NECK: Trachea midline. Supple and not tender, no meningeal signs CARDIOVASCULAR: Regular rate and rhythm. No rubs or gallops heard. (+) murmur in LSB. Pacemaker in place in left upper chest with no evidence of infection RESPIRATORY: Clear to auscultation. Breath sounds equal bilaterally. No rales , wheezing or rhonchi ABDOMEN: Soft, non-tender, nondistended. Bowel sounds present and normoactive. No guarding. No rebound. No organomegaly. EXTREMITIES: No clubbing, cyanosis, or edema. No joint effusion, has good ROM. No calf tenderness. Well perfused and warm. NEUROLOGICAL: Non-focal PSYCHIATRIC: Normal affect, calm and cooperative. LINE: No evidence of infection Assessment and Plan - Plan Impression Episode of fevers and chills and fatigue, resolved - etiology? has some studies suggestive of endocarditis (echo) - preceded by crown placement, no Abx prophylaxis - echo KIM per report with ?abnormality in lead, AV, ?fibrous tissue, but BC reportedly negative (Off Abx when BC done, not sure how long she was off Abx) Recent Rx for UTI Recent crown placement August 2017 S/P pacer for SSS S/P AVR for severe Recommendation ESR 78, CRP only .4 and RF negative BC negative On Rocephin and vancomycin Long discussion with patient regarding Rx or no Rx Will D/W Dr Brown Patient has good medical follow-up and can be followed very closely, and she seems very reliable to watch for recurrent S/Sxs of infection
[2017-10-19] MEDS ORDERED: Pharmacy Ordered Lab Info OTHER ONE (01:45)
== END 2017-10-18 18:00 | disposition home or self-care (01) ==
LOC: NEPE 01:51 → NEPGCP 01:51 → NEDA 06:42 → INTOOBSV 06:42 → NEDA 11:31 → NEPGCP 16:51
PROVIDERS: ADMIT Internal Medicine; ATTEND Internal Medicine